=== PATIENT | male | born 2000 | race Caucasian/White ===

== ENCOUNTER 2025-03-27 13:58 | Emergency (ER) | payer OTHER ==
[2025-03-27 14:01] VITALS: RESP 18
[2025-03-27] MEDS: ACETAMINOPHEN TAB 500 MG TAB PO STA (15:33)
[2025-03-27] MEDS: KETOROLAC 15 MG/ML 1 ML VIAL IM STA (15:34)
[2025-03-27] MEDS: LIDOCAINE 4% PATCH TOPICAL STA (15:34)
[2025-03-27] MEDS: diazePAM 2 MG TAB PO STA (15:34)
--- NOTE | 2025-03-27 16:08 | CT ---
EXAMINATION TYPE: CT thor lumbar spine wo con DATE OF EXAM: 03/27/2025 3:27 PM COMPARISON: None CLINICAL INDICATION: Male, 25 years old with history of back pain; Back pain TECHNIQUE: Axial images of the thoracic and lumbar spine were obtained without contrast. Coronal and sagittal reformats were performed. CT Contrast: Contrast used: mL of , none. Oral contrast used: none. CT DLP: 967.5 mGycm, Automated exposure control for dose reduction was used. FINDINGS: Compression deformity T12 vertebral body with less than 25% height loss. No significant retropulsion. No other fractures identified. No significant degeneration changes throughout the spine. The spinal alignment is otherwise unremarkable. Visualized portions of the chest and abdomen are grossly unremar kable. IMPRESSION : 1. Acute compression fracture of the T12 vertebral body with less than 25% height loss. 2. No significant spinal canal or neural foraminal stenosis is identified. [facility], , 03/27/2025 4:06 PM
--- NOTE | 2025-03-27 16:56 | ED ---
General Adult HPI - General Chief complaint: Back Pain/Injury Stated complaint: Back injury Time Seen by Provider: 03/27/25 14:40 Source: patient, RN notes reviewed, old records reviewed Mode of arrival: ambulatory Limitations: no limitations - History of Present Illness Initial comments: Patient is a 25-year-old male who presents emergency department complaining of back pain. States that he was wrestling with a family member when he landed strangely on his lower back and has been having severe pain since. Radiates from the lumbar into the thoracic region. No lower extremity paralysis. No saddle paresthesias. No urinary or bowel incontinence or retention. Injury occurred approximately an hour prior to arrival. Denies any other acute significant past medical history. Presents for further evaluation at this time.Denies hitting head. Denies loss of consciousness. - Related Data Previous Rx's Medication Instructions Recorded HYDROcodone/APAP 5-325MG [Lamont 1 tab PO Q6HR PRN 3 Days #12 tab 03/27/25 5-325] Lidocaine 5% Patch [Lidoderm 5% 1 patch TOPICAL DAILY PRN 14 Days 03/27/25 Patch] #14 patch Allergies Allergy/AdvReac Type Severity Reaction Status Date / Time Penicillins Allergy Rash/Hives Verified 03/27/25 14:01 Review of Systems ROS Statement: Those systems with pertinent positive or pertinent negative responses have been documented in the HPI. Review of Systems: CONST: Denies fever EYES: Denies blurry vision ENT: Denies nasal congestion C/V: Denies Chest pain RESP: Denies shortness of breath GI: Denies abdominal pain : Denies dysuria SKIN: Denies rash. MSK: Endorses back pain NEURO: Denies headache ROS Other: All systems not noted in ROS Statement are negative. Past Medical History Past Medical History: No Reported History History of Any Multi-Drug Resistant Organisms: None Reported Past Surgical History: No Surgical Hx Reported Past Psychological History: No Psychological Hx Reported Smoking Status: Current every day smoker Past Alcohol Use History: Daily, Occasional Past Drug Use History: None Reported General Exam - General Exam Comments Initial Comments: General: Appears in mild to moderate distress secondary to back pain. HEAD: Normal with no signs of head trauma. Negative Kim sign. Negative raccoon eyes. EYES: PERRLA, EOMI, conjunctiva normal, no discharge. Pupils are 3 mm and equal bilaterally. ENT: Hearing grossly intact RESPIRATORY: Clear breath sounds bilaterally. No wheezes, rales, or rhonchi. C/V: Regular rate and rhythm. S1 and S2 auscultated, peripheral pulses 2+ and intact throughout ABD: Abd is soft, nontender, nondistended EXT: No obvious deformity. No midline cervical spine tenderness to palpation. Tenderness palpation of the lower thoracic and upper lumbar spine. No obvious step-offs or deformities. Pelvis is stable. SKIN: No rashes or lesions observed on exposed skin. NEURO: Alert and oriented x 4. No focal neurological deficits. Limitations: no limitations Course Vital Signs 03/27/25 13:59 Temperature 98 F Pulse Rate 83 Respiratory 18 Rate Blood Pressure 129/78 O2 Sat by Pulse 99 Oximetry Medical Decision Making - Medical Decision Making Was pt. sent in by a medical professional or institution (, PA, EMPLOYEE HEALTH NURSE, urgent care, hospital, or shelter...) When possible be specific @ -No Did you speak to anyone other than the patient for history (EMS, parent, family, police, friend...)? What history was obtained from this source @ -No Did you review nursing and triage notes (agree or disagree)? Why? @ -I reviewed and agree with nursing and triage notes Were old charts reviewed (outside hosp., previous admission, EMS record, old EKG, old radiological studies, urgent care reports/EKG's, shelter records)? Report findings @ -No old charts were reviewed Differential Diagnosis (chest pain, altered mental status, abdominal pain women, abdominal pain men, vaginal bleeding, weakness, fever, dyspnea, syncope, headache, dizziness, GI bleed, back pain, seizure, CVA, palpatations, mental health, musculoskeletal)? @ -Differential Back Pain: Strain, zoster, cauda equina syndrome, epidural abscess, vertebral osteomyelitis, discitis, fracture, subluxation, disc herniation, DJD, spinal stenosis, dissection, AAA, pancreatitis, peptic ulcer disease, pyelonephritis, kidney stone, this is not meant to be an all-inclusive list. EKG interpreted by me (3pts min.). @ -None done X-rays interpreted by me (1pt min.). @ -None done CT interpreted by me (1pt min.). @ -CT thoracic and lumbar spine positive for T12 compression fracture. U/S interpreted by me (1pt. min.). @ -None done What testing was considered but not performed or refused? (CT, X-rays, U/S, labs)? Why? @ -None What meds were considered but not given or refused? Why? @ -None Did you discuss the management of the patient with other professionals (professionals i.e. , PA, EMPLOYEE HEALTH NURSE, lab, RT, psych nurse, manager social work, hat renovator, teacher, animal control officer, case management social worker)? Give summary @ -No Was smoking cessation discussed for >3mins.? @ -No Was critical care preformed (if so, how long)? @ -No Were there social determinants of health that impacted care today? How? (Homelessness, low income, unemployed, alcoholism, drug addiction, transportation, low edu. Level, literacy, decrease access to med. care, long-term, rehab)? @ -No Was there de-escalation of care discussed even if they declined (Discuss DNR or withdrawal of care, Hospice)? DNR status @ -No What co-morbidities impacted this encounter? (DM, HTN, Smoking, COPD, CAD, Cancer, CVA, ARF, Chemo, Hep., AIDS, mental health diagnosis, sleep apnea, morbid obesity)? @ -None Was patient admitted / discharged? Hospital course, mention meds given and route, prescriptions, significant lab abnormalities, going to OR and other pertinent info. @ -Based on the patient's presentation and physical exam, presents emergency department with back pain following a wrestling match with his brother. Vital signs are within acceptable limits. No concern for cauda equina syndrome at this time. We will obtain CT imaging of thoracic and lumbar spine. He was in agreement this plan. He is given analgesia medications. Vitals are within acceptable limits. CT imaging remarkable for an acute compression fracture at T12 with less than 25% height loss. On reevaluation, I updated the patient. Pain is improved. Discussed with the patient and it is safe for him to be discharged home with close follow-up. He will be given follow-up with orthopedics. He is given analgesia medications for home as well. Discussed tricked return precautions including red flag symptoms that would be indicative of cauda equina syndrome. He expressed understanding was in agreement this plan. Recommended he not lift anything heavier than a milk jug until he follows up with his orthopedics physician this week. He was in agreement this plan. I instructed the patient to follow up with their PCP in the next 1-3 days. I explained that the patient should return to the emergency department if they experience any worsening symptoms. Strict return precautions were discussed with the patient. The patient expressed understanding of these instructions. I answered all questions that the patient had. The patient was discharged home in good condition with their prescriptions and follow up information. Undiagnosed new problem with uncertain prognosis? @ -No Drug Therapy requiring intensive monitoring for toxicity (Heparin, Nitro, Insulin, Cardizem)? @ -No Were any procedures done? @ -No Diagnosis/symptom? @ -Fall, T12 compression fracture Acute, or Chronic, or Acute on Chronic? @ -Acute Uncomplicated (without systemic symptoms) or Complicated (systemic symptoms)? @ -Uncomplicated Side effects of treatment? @ -No Exacerbation, Progression, or Severe Exacerbation? @ -No Poses a threat to life or bodily function? How? (Chest pain, [place], [place], pneumonia, PE, COPD, DKA, ARF, appy, cholecystitis, CVA, Diverticulitis, Homicidal, Suicidal, threat to staff... and all critical care pts) @ -Unlikely at this time Disposition Clinical Impression: T12 compression fracture, Fall Disposition: HOME SELF-CARE Condition: Good Instructions (If sedation given, give patient instructions): Vertebral Compression Fracture (ED) Prescriptions: Lidocaine 5% Patch [Lidoderm 5% Patch] 1 patch TOPICAL DAILY PRN 14 Days #14 patch PRN Reason: Pain HYDROcodone/APAP 5-325MG [Lamont 5-325] 1 tab PO Q6HR PRN 3 Days #12 tab PRN Reason: Pain Is patient prescribed a controlled substance at d/c from ED?: Yes When asked, does pt state using other controlled substances?: No If prescribed controlled substance>3 days was MAPS reviewed?: Prescribed <3 Days If opioid is for acute pain is fill amount 7 days or less?: Yes If Rx opioid, was Start Talking consent form obtained?: Yes Referrals: None,Stated [Primary Care Provider] - 1-2 days Lux Doll MD [STAFF PHYSICIAN] - 1-2 days Forms: Area PCPs Time of Disposition: 16:50
[2025-03-27 17:30] VITALS: BP 120/73; PULSE 69; TEMP 97.9
== END 2025-03-27 17:32 | disposition home or self-care (01) ==
LOC: EC 13:58
DX: S22.080A Wedge compression fracture of T11-T12 vertebra, initial encounter for closed fracture (principal); F17.200 Nicotine dependence, unspecified, uncomplicated; Z88.0 Allergy status to penicillin; X58.XXXA Exposure to other specified factors, initial encounter; Y93.72 Activity, wrestling
CPT/HCPCS: 72128; 72131; 99284; 96372; J1885